=== PATIENT | male | born 1945 | race American Indian/Alaskan Native ===

== ENCOUNTER 2020-09-23 19:26 | Emergency (ER) | payer OTHER, MEDICARE ==
[2020-09-23] MEDS ORDERED: ACETAMINOPHEN 500 MG TAB PO ONE (20:18)
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
[2020-09-23 20:35] VITALS: BP 133/57
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
== END 2020-09-23 21:49 | disposition home or self-care (01) ==
LOC: ED 19:26
DX: S16.1XXA Strain of muscle, fascia and tendon at neck level, initial encounter (principal); S39.012A Strain of muscle, fascia and tendon of lower back, initial encounter; I10 Essential (primary) hypertension; Z98.890 Other specified postprocedural states; Z79.899 Other long term (current) drug therapy; Z88.8 Allergy status to other drugs, medicaments and biological substances; V49.69XA Unspecified car occupant injured in collision with other motor vehicles in traffic accident, initial encounter; Y93.89 Activity, other specified; Y92.410 Unspecified street and highway as the place of occurrence of the external cause; Y99.8 Other external cause status
CPT/HCPCS: 72040; 72100

== ENCOUNTER 2021-04-17 16:32 | Emergency (ER) | payer OTHER, MEDICARE ==
[2021-04-17] MEDS ORDERED: ACETAMINOPHEN 500 MG TAB PO STA (17:03)
[2021-04-17] MEDS ORDERED: predniSONE 20 MG TAB PO ONE (17:03)
[2021-04-17 17:28] VITALS: BP 142/62
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
[2021-04-17 18:29] LABS: Eosinophils # (Auto) 0.1 K/mm3 (0.0-0.4); Hematocrit 41.4 % (35.5-45.6); Hemoglobin 14.2 gm/dl (11.8-15.2); Lymphocytes # (Auto) 1.5 K/mm3 (1.2-5.4); Mean Corpuscular HGB Conc 34 % (32-34); Mean Corpuscular Volume 103 fl (84-94); Monocytes # (Auto) 0.7 K/mm3 (0.0-0.8); Monocytes % (Auto) 10.7 % (0.0-7.3); Platelet Count 113 K/mm3 (140-440); Red Blood Count 4.02 M/mm3 (3.65-5.03); Red Cell Distribution Width 14.7 % (13.2-15.2)
[2021-04-17 18:31] LABS: Basophils % (Auto) 0.3 % (0.0-1.8)
[2021-04-17 18:48] LABS: Calcium 9.2 mg/dL (8.4-10.2)
--- NOTE | 2021-04-18 10:51 | Electrocardiograph Report ---
[facility] Test Date: 2021-04-17 Test Time: 17:10:34 Pat Name: LUKE BUSTAMANTE Department: Room: Gender: M Timber Faller: EDUARDO : 1945 Requested By: KRYS POON Order Number: [id number] Reading MD: Cullen Campbell Measurements Intervals [place] Rate: 74 P: 46 DC: 180 QRS: 54 QRSD: 87 T: 32 QT: 379 QTc: 420 Interpretive Statements Sinus rhythm No previous ECG available for comparison Electronically Signed On 04-18-2021 10:51:01 EDT by Cullen Campbell
== END 2021-04-17 19:37 | disposition home or self-care (01) ==
LOC: ED 16:32
DX: S09.90XA Unspecified injury of head, initial encounter (principal); R07.89 Other chest pain; I10 Essential (primary) hypertension; Z87.442 Personal history of urinary calculi; Z98.890 Other specified postprocedural states; Z91.041 Radiographic dye allergy status; Z79.82 Long term (current) use of aspirin; Z79.899 Other long term (current) drug therapy; V89.2XXA Person injured in unspecified motor-vehicle accident, traffic, initial encounter; Y93.89 Activity, other specified; Y92.488 Other paved roadways as the place of occurrence of the external cause; Y99.8 Other external cause status
CPT/HCPCS: 36415; 70450; 71046; 71120; 80048; 84484; 85025; 93005; 99284; J7512